=== PATIENT | female | born 1975 | race Caucasian/White ===

== ENCOUNTER 2020-05-27 23:03 | Emergency (ER) | payer OTHER ==
[~2020-05-27] VITALS: Ht 167.6 cm; Wt 90.9 kg
[2020-05-27] MEDS ORDERED: HYDROmorphone 2 MG/ML SYRINGE IVP ONE (23:30)
[2020-05-27] MEDS ORDERED: SODIUM CHLORIDE 0.9% 2,000 ML IV ONE (23:30)
[2020-05-27] MEDS ORDERED: ONDANSETRON HCL 4 MG/2 ML VIAL IVP ONE (23:30)
[2020-05-27 23:41] LABS: BASOPHILS % (AUTO) 0.9 % (0.0-2.0); EOSINOPHILS % (AUTO) 2.3 % (1.0-6.0); HEMATOCRIT 38.1 % (36-46); HEMOGLOBIN 13.3 g/dL (12.0-16.0); LYMPHOCYTES # (AUTO) 1.6 K/uL (1.0-4.8); LYMPHOCYTES % (AUTO) 28.7 % (22.0-44.0); MEAN CORPUSCULAR HEMOGLOBIN 28.7 pg (26.0-34.0); MEAN CORPUSCULAR HGB CONC 34.8 G/dL (31.0-37.0); MEAN CORPUSCULAR VOLUME 83 fL (80-100); MONOCYTES # (AUTO) 0.8 K/uL (0.1-1.0); MONOCYTES % (AUTO) 14.1 % (2.0-9.0); NEUTROPHILS # (AUTO) 2.9 K/uL (1.8-7.7); PLATELET COUNT (AUTO) 307 K/uL (150-450); RED BLOOD CELL COUNT(AUTO) 4.62 MIL/uL (4.00-5.20)
[2020-05-27 23:56] LABS: ANION GAP 10 mmol/L (8-16); CARBON DIOXIDE 27 mmol/L (22-29); CHLORIDE 103 mmol/L (98-107); CREATININE 0.72 mg/dL (0.60-1.30); GLOMERULAR FILTR. RATE CALC > 60 mL/min (>60); GLUCOSE,RANDOM 117 mg/dL (70-110); POTASSIUM 3.2 mmol/L (3.5-5.1); SODIUM SERUM 140 mmol/L (136-145); UREA NITROGEN, BLOOD 16 mg/dL (7-18)
[2020-05-28 00:02] LABS: ALKALINE PHOSPHATASE 79 U/L (46-116); BILIRUBIN,TOTAL 0.4 mg/dL (0.1-1.0)
[2020-05-28 00:13] LABS: ASPARTATE AMINOTRANSFERASE 30 U/L (15-37); TOTAL PROTEIN, SERUM 7.2 g/dL (6.4-8.2)
[2020-05-28 00:14] LABS: ALBUMIN 3.7 g/dL (3.4-5.0)
[2020-05-28] MEDS ORDERED: POTASSIUM CHLORIDE 10% 40 MEQ/30 ML LIQUID UDCUP PO ONE (00:15)
[2020-05-28 00:25] LABS: ALANINE AMINOTRANSFERASE 40 U/L (12-78)
[2020-05-28 00:55] LABS: HCG,QUANTITATIVE 1 mIU/mL (0-6)
[2020-05-28] MEDS ORDERED: MORPHINE SULFATE 2 MG/ML SYRINGE IVP ONE (02:15)
[2020-05-28 02:45] VITALS: BP 114/57
== END 2020-05-28 02:52 | disposition home or self-care (01) ==
LOC: EMS 23:03
DX: R51.9 Headache, unspecified (principal); E87.6 Hypokalemia
CPT/HCPCS: 36415; 70450; 80053; 84702; 85025; 96361; 96374; 96375; 99285; J1170; J2270; J2405